=== PATIENT | female | born 1985 | race Caucasian/White ===

== ENCOUNTER 2022-10-05 13:56 | Outpatient (CLI) | payer OTHER | END 2022-10-05 16:34 | disposition home or self-care (01) | LOC: OBS/DEL 13:56 | PROVIDERS: ATTEND Obstetrics & Gynecology | DX: O26.893 Other specified pregnancy related conditions, third trimester (principal); Z3A.32 32 weeks gestation of pregnancy; V43.52XA Car driver injured in collision with other type car in traffic accident, initial encounter; Y93.9 Activity, unspecified; Y92.410 Unspecified street and highway as the place of occurrence of the external cause; Y99.9 Unspecified external cause status ==

== ENCOUNTER 2022-11-23 08:18 | Inpatient (IN) | payer OTHER ==
[~2022-11-23] VITALS: Ht 162.6 cm; Wt 86.2 kg
[2022-11-23] MEDS ORDERED: VALTREX1000 MG PO (09:04)
[2022-11-23] MEDS ORDERED: PRENATAL + DHA1 EAC1 PO (09:04)
[2022-11-25] MEDS ORDERED: DOCUSATE SODIU100 MG PO (08:57)
== END 2022-11-25 12:49 | disposition home or self-care (01) | DRG 768 ==
LOC: LDR 08:18 → OB/GYN 16:25
PROVIDERS: ADMIT Student in an Organized Health Care Education/Training Program; ATTEND Student in an Organized Health Care Education/Training Program
PROC: 10E0XZZ Delivery of Products of Conception, External Approach (ICD-10-PCS; principal; 2022-11-23)
PROC: 0DQP0ZZ Repair Rectum, Open Approach (ICD-10-PCS; 2022-11-23)
PROC: 0W8NXZZ Division of Female Perineum, External Approach (ICD-10-PCS; 2022-11-23)
PROC: 4A1HXCZ Monitoring of Products of Conception, Cardiac Rate, External Approach (ICD-10-PCS; 2022-11-23)
DX: O70.3 Fourth degree perineal laceration during delivery (principal); Z37.0 Single live birth; Z3A.39 39 weeks gestation of pregnancy; Z20.822 Contact with and (suspected) exposure to COVID-19

== ENCOUNTER → 2025-03-24 08:25 | Outpatient (CLI) | payer OTHER ==
[~2025-03-24 08:25] MED LIST: DOCUSATE SODIU100 MG PO; PRENATAL + DHA1 EAC1 PO; VALTREX1000 MG PO
== END | disposition home or self-care (01) ==
LOC: PRENATAL 08:25
PROVIDERS: ATTEND Obstetrics & Gynecology
DX: O44.00 Complete placenta previa NOS or without hemorrhage, unspecified trimester (principal); O09.529 Supervision of elderly multigravida, unspecified trimester; Z3A.20 20 weeks gestation of pregnancy

== ENCOUNTER 2025-05-20 08:42 | Outpatient (CLI) | payer OTHER | END 2025-05-20 08:46 | disposition home or self-care (01) | LOC: PRENATAL 08:42 | PROVIDERS: ATTEND Obstetrics & Gynecology Maternal & Fetal Medicine | DX: O26.849 Uterine size-date discrepancy, unspecified trimester (principal); O44.00 Complete placenta previa NOS or without hemorrhage, unspecified trimester; O09.529 Supervision of elderly multigravida, unspecified trimester; O32.9XX0 Maternal care for malpresentation of fetus, unspecified, not applicable or unspecified; Z3A.29 29 weeks gestation of pregnancy ==

== ENCOUNTER 2025-06-30 07:42 | Outpatient (CLI) | payer OTHER | END 2025-06-30 07:43 | disposition home or self-care (01) | LOC: PRENATAL 07:42 | PROVIDERS: ATTEND Obstetrics & Gynecology Maternal & Fetal Medicine | DX: O26.843 Uterine size-date discrepancy, third trimester (principal); O09.523 Supervision of elderly multigravida, third trimester; O36.8130 Decreased fetal movements, third trimester, not applicable or unspecified; Z3A.35 35 weeks gestation of pregnancy ==